=== PATIENT | female | born 1990 ===

== ENCOUNTER 2023-03-30 02:14 | Emergency (ER) | payer SELFPAY ==
[~2023-03-30] VITALS: Ht 162.6 cm; Wt 73.0 kg
[2023-03-30 02:16] VITALS: BP 111/80; PULSE 87; RESP 20; TEMP 98.6
== END 2023-03-30 02:35 | disposition home or self-care (01) ==
LOC: EMS 02:22
DX: Z53.21 Procedure and treatment not carried out due to patient leaving prior to being seen by health care provider (principal)
CPT/HCPCS: 99281; Z7502